=== PATIENT | female | born 1955 | race Hispanic/Latino ===

== ENCOUNTER 2018-09-26 13:28 | Outpatient (CLI) | payer MEDICAID ==
--- NOTE | 2018-09-26 16:02 | Mammography Report ---
BILATERAL DIGITAL SCREENING MAMMOGRAM with CAD: 09/26/18 13:28:00 CLINICAL: Routine screening. COMPARISON:02/06/15 FINDINGS: The breasts are almost entirely fatty. A right upper outer irregular focal asymmetry is new and requires additional imaging.No architectural distortion or suspicious calcifications.The left breast is negative. IMPRESSION: Right focal asymmetry requiring further workup. BI-RADS CATEGORY: 0 -- Additional Imaging Evaluation Required RECOMMENDATION: Recall for right mediolateral and spot magnification MLO and CC views and targeted right breast ultrasound. COMMENT: 1. Dense breast tissue, i.e., adenosis, fibrocystic changes, etc., may obscure an underlying neoplasm. 2. Approximately 10% of cancers are not detected with mammography. 3. A negative mammography report should not delay biopsy if a clinically suspicious mass is present. COMMENT: Patient follow-up letters are generated via our [employer] application.
== END 2018-09-26 13:29 | disposition home or self-care (01) ==
LOC: SPVWC 13:28
PROVIDERS: ATTEND Internal Medicine
DX: Z12.31 Encounter for screening mammogram for malignant neoplasm of breast (principal); E78.00 Pure hypercholesterolemia, unspecified; I10 Essential (primary) hypertension; E66.9 Obesity, unspecified; M19.90 Unspecified osteoarthritis, unspecified site; E11.9 Type 2 diabetes mellitus without complications; Z90.49 Acquired absence of other specified parts of digestive tract; Z90.710 Acquired absence of both cervix and uterus
CPT/HCPCS: 77067

== ENCOUNTER 2021-03-20 12:24 | Outpatient (CLI) | payer MEDICAID ==
--- NOTE | 2021-03-23 12:12 | Mammography Report ---
DIGITAL SCREENING MAMMOGRAM WITH CAD, 03/20/2021 CLINICAL INFORMATION / INDICATION: Routine screening mammography. SCREENING MAMMO Z12.31 TECHNIQUE: Digital bilateral 2D mammography was obtained in the craniocaudal and mediolateral obliqu e projections. This examination was interpreted with the benefit of Computer-Aided Detection analysis . COMPARISON: 01/22/2014 through 09/26/2018. FINDINGS: Breast Density: There are scattered areas of fibroglandular density. No dominant mass, suspicious calcifications, or architectural distortion in the left breast. There is a new 9 mm spiculated mass in the right upper outer quadrant in the posterior depth at the 1 0 to 11:00 position 11 to 13 cm from the nipple. IMPRESSION: New small spiculated mass in the right upper outer quadrant. Right breast ultrasound is r ecommended for initial evaluation. Spot compression views could be performed if necessary. Follow up recommendation: Ultrasound BI-RADS Category 0: Incomplete. Needs additional imaging evaluation and/or prior mammograms for saundra rison. A "normal" or negative report should not discourage follow up or biopsy of a clinically significant f inding. A written summary of these findings will be mailed to the patient. The patient will be entered into a mammography reporting system which will generate a reminder letter for the patient's next appointmen t at the appropriate interval. The [employer] recommends yearly mammograms starting at age 40 and continuing as l drew as a woman is in good health. Breast MRI is recommended for women with an approximate 20-25% or greater lifetime risk of breast cancer, including women with a strong family history of breast or ova nikko cancer or who have been treated for Hodgkin's disease. Signer Name: Jonah Gerber MD Signed: 03/23/2021 12:08 PM Workstation Name: [employer]
== END 2021-03-20 12:25 | disposition home or self-care (01) ==
LOC: SPVWC 12:24
PROVIDERS: ATTEND Internal Medicine
DX: Z12.31 Encounter for screening mammogram for malignant neoplasm of breast (principal)
CPT/HCPCS: 77067